=== PATIENT | female | born 1985 | race Caucasian/White ===

== ENCOUNTER → 2019-10-11 | Day surgery (SDC) | payer BC ==
[~2019-10-11] MED LIST: FAMOTIDINE20 MG PO; FENTANYL CITRATE/PF 100MCG/2 ML INJ ONE; FLUOXETINE HCL20 M1 PO; IRON PO; LAMICTAL100 MG PO; MIDAZOLAM HCL 2 MG/2 ML VIAL ONE; PROPOFOL IV EMULSION 10 MG/ML 50 ML VIAL ONE; TRAZODONE HCL50 MG PO; ZONISAMIDE PO
--- OUTSIDE RECORDS SUMMARY | 2019-10-11 11:18 | XMS REPORT ---
Author Author [facility] Address Unknown Phone Unavailable Care Team Providers Care Deputy Sheriff Lieutenant Name Role Phone FEMI GRIMALDO Unavailable Unavailable Ann Langley Unavailable Unavailable JOSE SALCEDO Unavailable Unavailable ROLLY, NICOLE SCHNEIDER Unavailable Unavailable Problems This patient has no known problems. Allergies, Adverse Reactions, Alerts This patient has no known allergies or adverse reactions. Medications This patient has no known medications. Results Test Description Test Time Test Comments Text Results Atomic Results Result Comments TISSUE EXAM 2019-04-21 10:22:00 Surgical Pathology Report Case: [id number] Authorizing Provider: Femi Grimaldo MD Collected: 04/13/2019 1457 Ord ering Location: [facility] PERIOPERATIVE Received: 04/14/2019 0815 SERVICES Pathologist: Emily Beatty MD Specimens: A) - Soft Tissue, Other, left upper ureteral endometriosis B) - Soft Tissue, Other, left upper perirectal space endometriosis C) - Soft Tissue, Other, left pelvic sidewall endometriosis D) - Soft Tissue, Other, left uterine artery endometriosis E) - Soft Tissue, Other, left lower ureteral endometriosis F) - Soft Tissue, Other, posterior cul-de-sac endometriosis G) - Soft Tissue, Other, left lower perirectal space endometriosis H) - Soft Tissue, Other, left uteteral sacral endometriosis I) - Soft Tissue, Other, Recto endometriosis J) - Soft Tissue, Other, left sigmoid endometriosis K) - Soft Tissue, Other, left sigmoid endometriosis #2 L) - Soft Tissue, Other, right sigmoid endometriosis M) - Soft Tissue, Other, right perirectal space endometriosis N) - Soft Tissue, Other, right uterosacral ligament endometriosis O) - Soft Tissue, Other, right pelvic side wall endometriosis P) - Soft Tissue, Other, right uterosacral li gament endometriosis Q) - Soft Tissue, Other, right perirectal space nodule R) - Soft Tissue, Other, bladder endometriosis S) - Uterus w/Cervix & Bilateral Fallopian Tubes A. SOFT TISSUE, LEFT UPPER URETER, EXCISION: - ENDOMETRIOSISB. SOFT TISSUE, LEFT UPPER PERIRECTAL SPACE, EXCISION: - ENDOMETRIOSIS AND ENDOSALPINGIOSISC. SOFT TISSUE, LEFT PELVIC SIDEWALL, EXCISION: - ENDOMETRIOSISD. SOFT TISSUE, LEFT UTERINE ARTERY, EXCISION: - ENDOSALPINGIOSISE. SOFT TISSUE, LEFT LOWER URETER, EXCISION: - ENDOMETRIOSISF. SOFT TISSUE, POSTERIOR CUL-DE-SAC, EXCISION: - ENDOMETRIOSISG. SOFT TISSUE, LEFT LOWER PERIRECTAL SPACE, EXCISION: - ENDOSALPINGIOSISH. SOFT TISSUE, LEFT UTEROSACRAL, EXCISION: - ENDOMETRIOSIS AND ENDOSALPINGIOSISI. SOFT TISSUE, RECTUM, EXCISION: - ENDOMETRIOSIS AND ENDOSALPINGIOSIS J. SOFT TISSUE, LEFT SIGMOID, EXCISION: - ENDOMETRIOSIS AND ENDOSALPINGIOSISK. SOFT TISSUE, LEFT SIGMOID #2, EXCISION: - ENDOMETRIOSIS AND ENDOSALPINGIOSISL. SOFT TISSUE, RIGHT SIGMOID, EXCISION: - ENDOSALPINGIOSISM. SOFT TISSUE, RIGHT PERIRECTAL SPACE, EXCISION: - ENDOSALPINGIOSISN. SOFT TISSUE, RIGHT UTEROSACRAL LIGAMENT, EXCISION: - ENDOMETRIOSIS AND ENDOSALPINGIOSISO. SOFT TISSUE, RIGHT PELVIC SIDEWALL, EXCISION: - ENDOMETRIOSISP. SOFT TISSUE, RIGHT UTEROSACRAL LIGAMENT, EXCISION: - ENDOMETRIOSIS AND ENDOSALPINGIOSISQ. SOFT TISSUE, RIGHT PERIRECTAL SPACE NODULE, EXCISION: - ENDOSALPINGIOSISR. SOFT TISSUE, BLADDER, EXCISION: - ENDOMETRIOSIS AND ENDOSALPINGIOSISS. UTERUS, CERVIX, BILATERAL FALLOPIAN TUBES, HYSTERECTOMY AND BILATERAL SALPINGECTOMY: UTERINE CORPUS: - PROLIFERATIVE ENDOMETRIUM - UNREMARKABLE MYOMETRIAL - SEROSAL ENDOMETRIOSIS CERVIX: - NO PATHOLOGIC CHANGE FALLOPIAN TUBES: - NO PATHOLOGIC CHANGE Signing Pathologist Direct Phone Line: [phone] signed by Emily Beatty MD on 04/21/2019 at 10:22 [id number] of endometriosisA. Left upper ureteral endometriosis. B. Left upper perirectal space endometriosis. C. Left pelvic sidewall endometriosis. D. Left uterine artery endometriosis. E. Left lower ureteral endometriosis. F. Posterior cul-de-sac endometriosis. G. Left lower perirectal space endometriosis. H. Left uterosacral endometriosis. I. Rectal endometriosis. J. Left sigmoid endometriosis. K. Left sigmoid endometriosis #2. L. Right sigmoid endometriosis. M. Right perirectal space endometriosis. N. Right uterosacral ligament endometriosis. O. Right pelvic sidewall endometriosis. P. Right uterosacral ligament endometriosis. Q. Right perirectal space nodule. R. Bladder endometriosis. S. ureter with cervix and bilateral fallopian tubes.The specimen is received in formalin in 19 parts labeled with the patient's name, Katherine Henao, and accession number, [id number], which corresponds to the accompanying requisition form.A. Received labeled "left upper ureteral endometriosis" is a single irregular fragment of gleason-red fibrous tissue measuring 0.8 x 0.6 x 0.4 cm, which is bisected and submitted entirely in A1.B. Received labeled "left upper perirectal space endometriosis" are two irregular fragments of gleason-red fibrous tissue measuring 1.5 x 1.5 x 0.5 cm in aggregate; serially sectioned and submitted entirely in B1.C. Received labeled "left pelvic sidewall endometriosis" is a single irregular fragment of gleason-pink fibrous tissue with a smooth glistening surface, which measures 1.2 x 1.0 x 0.3 cm; submitted entirely in C1.D. Received labeled "left uterine artery endometriosis" is a single irregular fragment of gleason-red fibrous tissue measuring 1.6 x 0.5 x 0.3 cm; submitted entirely in D1.E. Received labeled "left lower ureteral endometriosis" is a single irregular fragment of gleason-red glistening fibromembranous tissue measuring 1.5 x 1.2 x 0.3 cm; submitted entirely in E1.F. Received labeled "posterior cul-de-sac endometriosis" is a single irregular fragment of shaggy gleason tissue measuring 1.0 x 0.6 x 0.5 cm; submitted entirely in F1.G. Received labeled "left lower perirectal space endometriosis" is a single irregular fragment of gleason-pink fibromembranous tissue measuring 1.3 x 0.6 x 0.5 cm; submitted entirely in G1.H. Received labeled "left ureteral sacral endometirosis" is a single irregular fragment of gleason-pink glistening fibromembranous tissue measuring 2.0 x 1.5 x 0.3 cm; submitted entirely in H1.I. Received labeled "rectal endometriosis" is a single irregular portion of gleason-pink soft tissue measuring 2.0 x 1.0 x 0.3 cm, submitted entirely in I1.J. Received labeled "left sigmoid endometriosis" are two irregular fragments of gleason-pink fibromembranous tissue measuring 2.0 x 1.5 x 0.5 cm in aggregate; submitted entirely in J1.K. Received labeled "left sigmoid endometriosis #2" is a single irregular fragment of gleason-white gelatinous tissue measuring 0.6 x 0.3 x 0.1 cm, which is submitted in toto in one cassette.L. Received labeled " right sigmoid endometriosis" are two irregular fragments of gleason-pink fibromembranous tissue measuring 1.0 x 0.5 x 0.2 cm in aggregate. The specimen contains two gleason-red papules measuring 0.1 cm each. The specimen is serially sectioned and submitted entirely in L1.M. Received labeled "right perirectal space endometriosis" are two irregular fragments of gleason-pink glisten ing fibromembranous tissue measuring 2.0 x 1.5 x 0.7 cm in aggregate; submitted entirely in M1.N. Received labeled "right uterosacral ligament endometriosis" are two irregular fragments of gleason-pink fibromembranous tissue measuring 2.3 x 1.5 x 0.5 cm in aggregate. The specimen is serially sectioned and submitted entirely in N1.O. Received labeled "right pelvic side endometriosis" is a single irregular fragment of gleason-red hemorrhagic fibromembranous tissue measuring 2.5 x 1.5 x 0.7 cm; submitted entirely in O1.P. Received labeled "right uterosacral ligament endometriosis" is a single irregular fragment of gleason-red fibromembranous tissue measuring 1.5 x 0.7 x 0.4 cm; submitted entirely in P1.Q. Received labeled "right perirectal space endometriosis" is a single irregular fragment of gleason-pink fibrous tissue measuring 1.0 x 0.4 x 0.3 cm; submitted entirely in Q1.R. Received labeled "bladder endometriosis" are two irregular fragments of gleason-pink hemorrhagic fibromembranous tissue measuring 4.0 x 2.3 x 0.4 cm in aggregate. The specimen is serially sectioned and submitted entirely in R1-R2.S. Received labeled "uterus with cervix and bilateral fallopian tubes" is a 75 gm intact uterus (7.5 x 6.5 x 3.3 cm) with attached cervix (2.3 cm long x 3.5 cm diameter, with 1 cm slit-like os and adjacent granular, edematous, gleason- red mucosa spanning 2.0 x 1.5 cm), and detached unoriented fimbriated fallopian tubes (3 cm long each x 0.5 cm in diameter). The serosal surface is gleason-pink and smooth. The uterus is bivalved to show gleason-pink unreamarkable endocervical mucosa. The endometrial cavity is 3.3 x 2.4 cm. The endometrium is gleason-red and appears thickened, measuring up to 0.5 cm. The myometrium is soft and trabeculated, measuring 1.4 cm in average thickness. The fallopian tubes have pinpoint lumina. No gross lesions are seen. Ink code: Blue - anterior, black - posterior.Table Cut Off Saw Operator sections are submitted as follows. S1-S3, anterior endomyometrium, cervix to fundus, one longitudinal section; S4-S6, posterior endomyometrium, cervix to fundus, one longitudinal section; S7, additional anterior endomyometrium; S8, additional posterior endomyometrium; S9, S10, fallopian tubes. AG/eA-S: Performed. HEMOGLOBIN 2019-03-26 11:09:00 HEMOGLOBIN (BEAKER) (test cqsx=022) 12.9 GM/DL 11.2-15.7 MRI BRAIN [id number] 08:45:20CLINICAL INDICATION: R20.0 Anesthesia of skinMODALITY: Avanto 1.5 Sharri 18 channel MRITECHNIQUE: Multiplanar SE, FSE and inversion recovery pulse sequences of the brain were performed without contrast enhancement. Diffusion weighted imaging is utilized.IMPRESSION:1. There are no intracranial abnormalities. No evidence of intracranial demyelination. 2. There is mild - moderate fluid in mastoid air cells bilaterally, greater in volume on the left.FINDINGS:COMPARISON: noneThere are no significant intracranial white matter lesions. There are no microvascular ischemic changes. There is no evidence of intracranial demyelination.There are no acute infarcts, ischemic changes or hemorrhages. There is no acute restriction on diffusion sequences.There are no intracranial or extra-axial mass es. There is no hydrocephalous.The visualized portions of orbits are normal. Lynette la and parasellar structures are normal. Central skull base is intact. The pine al region is normal.The craniocervical junction is intact. No mass or Chiari mal formation.The brainstem, midbrain and cerebellum are normal. Bilateral internal auditory canals are normal and symmetric.Normal flow voids are seen intracranial ly in carotid and vertebrobasilar arteries. The calvarium is intact. The scalp is intact.There is fluid in mastoid air cells bilaterally, mild on the right, m oderate on the left. The nasopharynx is not completely evaluated on this exam al though no definite obstructing lesions are seen in the visualized portions of th e nasopharynx.CBC (HEMOGRAM ONLY)2018-12-11 04:37:00* Test Item Value Reference Range Comments WHITE BLOOD CELL COUNT (BEAKER) (test eezs=214) 16.5 K/ L 4.0-10.0 RED BLOOD CELL COUNT (BEAKER) (test oncp=749) 2.83 M/ L 4.00-5.00 HEMOGLOBIN (BEAKER) (test agpn=133) 9.2 GM/DL 12.0-15.5 HEMATOCRIT (BEAKER) (test nfyy=063) 27.6 % 36.0-46.0 MEAN CORPUSCULAR VOLUME (BEAKER) (test ebqx=785) 97.5 fL 82.0-99.0 MEAN CORPUSCULAR HEMOGLOBIN (BEAKER) (test sqhx=496) 32.5 pg 27.0-33.0 MEAN CORPUSCULAR HEMOGLOBIN CONC (BEAKER) (test jdgq=647) 33.3 GM/DL 32.0-36.0 RED CELL DISTRIBUTION WIDTH (BEAKER) (test iqdu=219) 13.3 % 12.0-15.0 PLATELET COUNT (BEAKER) (test afis=304) 155 K/CU MM 150-430 MEAN PLATELET VOLUME (BEAKER) (test yozp=610) 10.7 fL 6.0-11.5 NUCLEATED RED BLOOD CELLS (BEAKER) (test tkib=625) 0 /100 WBC 0-0 [id number] 14:37:00* Test Item Value Reference Range Comments RPR SCREEN (BEAKER) (test vouf=299) Nonreactive Nonreactive HIV-1 ANTIGEN WITH HIV-1/2 [id number] 12:07:00* Test Item Value Reference Range Comments HIV-1 ANTIGEN WITH HIV 1\\T\\2 ANTIBODY (2) (BEAKER) (test nreq=6790) Nonreactive Nonreactive HEPATITIS B SURFACE [id number] 12:06:00* Test Item Value Reference Range Comments HEPATITIS B SURFACE ANTIGEN (2) (BEAKER) (test trji=0206) Nonreactive Nonreactive COMPREHENSIVE METABOLIC [id number] 10:29:00* Test Item Value Reference Range Comments TOTAL PROTEIN (BEAKER) (test nqbd=441) 6.2 gm/dL 6.0-8.5 ALBUMIN (BEAKER) (test axif=6558) 3.3 g/dL 3.5-5.0 ALKALINE PHOSPHATASE (BEAKER) (test lqaj=162) 162 U/L 30-115 BILIRUBIN TOTAL (BEAKER) (test cude=434) 0.3 mg/dL 0.1-1.2 SODIUM (BEAKER) (test qutz=312) 135 meq/L 135-148 POTASSIUM (BEAKER) (test nhnt=893) 4.6 meq/L 3.6-5.5 CHLORIDE (BEAKER) (test lzcp=390) 107 meq/L 98-106 CO2 (BEAKER) (test fxdc=891) 23 meq/L 20-29 BLOOD UREA NITROGEN (BEAKER) (test pypb=507) 8 mg/dL 10-26 CREATININE (BEAKER) (test yvxj=138) 0.86 mg/dL 0.50-1.20 GLUCOSE RANDOM (BEAKER) (test fvvl=661) 69 mg/dL 70-110 CALCIUM (BEAKER) (test ixbe=799) 9.2 mg/dL 8.5-10.5 AST (SGOT) (BEAKER) (test ebtg=627) 17 U/L 5-40 ALT (SGPT) (BEAKER) (test pcdo=324) 15 U/L 5-50 EGFR (BEAKER) (test ocfv=3159) 76 mL/min/1.73 sq m ESTIMATED GFR IS NOT ACCURATE CREATININE CLEARANCE IN PREDICTING GLOMERULAR FILTRATION RATE. ESTIMATED GFR IS NOT APPLICABLE FOR DIALYSIS PATIENTS. URIC [id number] 10:29:00* Test Item Value Reference Range Comments URIC ACID (BEAKER) (test acrc=569) 6.8 mg/dL 2.5-8.0 LACTATE DEHYDROGENASE (LDH)2018-12-09 10:25:00* Test Item Value Reference Range Comments LACTATE DEHYDROGENASE (BEAKER) (test plhe=971) 156 U/L 107-206 CBC W/PLT COUNT & AUTO [id number] 10:04:00* Test Item Value Reference Range Comments WHITE BLOOD CELL COUNT (BEAKER) (test xzhg=033) 13.1 K/ L 4.0-10.0 RED BLOOD CELL COUNT (BEAKER) (test zidd=557) 3.53 M/ L 4.00-5.00 HEMOGLOBIN (BEAKER) (test ezwl=027) 11.2 GM/DL 12.0-15.5 HEMATOCRIT (BEAKER) (test fhdp=452) 34.2 % 36.0-46.0 MEAN CORPUSCULAR VOLUME (BEAKER) (test csde=785) 96.9 fL 82.0-99.0 MEAN CORPUSCULAR HEMOGLOBIN (BEAKER) (test oqyv=033) 31.7 pg 27.0-33.0 MEAN CORPUSCULAR HEMOGLOBIN CONC (BEAKER) (test vxsr=311) 32.7 GM/DL 32.0-36.0 RED CELL DISTRIBUTION WIDTH (BEAKER) (test hsfa=850) 13.1 % 12.0-15.0 PLATELET COUNT (BEAKER) (test klah=670) 164 K/CU MM 150-430 MEAN PLATELET VOLUME (BEAKER) (test dcsw=840) 10.5 fL 6.0-11.5 NUCLEATED RED BLOOD CELLS (BEAKER) (test rtph=783) 0 /100 WBC 0-0 NEUTROPHILS RELATIVE PERCENT (BEAKER) (test tpyo=351) 81 % LYMPHOCYTES RELATIVE PERCENT (BEAKER) (test pfpw=593) 13 % MONOCYTES RELATIVE PERCENT (BEAKER) (test cemj=806) 4 % EOSINOPHILS RELATIVE PERCENT (BEAKER) (test gwyp=616) 1 % BASOPHILS RELATIVE PERCENT (BEAKER) (test wnaq=649) 0 % NEUTROPHILS ABSOLUTE COUNT (BEAKER) (test rjjj=390) 10.60 K/ L 1.80-8.00 LYMPHOCYTES ABSOLUTE COUNT (BEAKER) (test aejo=755) 1.68 K/ L 1.48-4.50 MONOCYTES ABSOLUTE COUNT (BEAKER) (test pviw=226) 0.56 K/ L 0.00-1.30 EOSINOPHILS ABSOLUTE COUNT (BEAKER) (test rlle=517) 0.14 K/ L 0.00-0.50 BASOPHILS ABSOLUTE COUNT (BEAKER) (test ebsc=441) 0.04 K/ L 0.00-0.20 IMMATURE GRANULOCYTES-RELATIVE PERCENT (BEAKER) (test dizv=6552) 1 % 0-0 URINALYSIS W/ [id number] 13:19:00* Test Item Value Reference Range Comments COLOR (BEAKER) (test peoc=074) Yellow CLARITY (BEAKER) (test unrh=425) Clear SPECIFIC GRAVITY UA (BEAKER) (test hluz=137) <= 1.001-1.035 PH UA (BEAKER) (test mory=161) 7.0 5.0-8.0 PROTEIN UA (BEAKER) (test olzu=646) Negative Negative GLUCOSE UA (BEAKER) (test xxcn=016) Negative Negative KETONES UA (BEAKER) (test tmpu=686) Negative Negative BILIRUBIN UA (BEAKER) (test zfja=688) Negative Negative BLOOD UA (BEAKER) (test xsep=295) Moderate Negative NITRITE UA (BEAKER) (test fqyi=188) Negative Negative LEUKOCYTE ESTERASE UA (BEAKER) (test vbhr=692) Negative Negative UROBILINOGEN UA (BEAKER) (test ztxb=927) 0.2 mg/dL 0.2-1.0 BACTERIA (BEAKER) (test twwq=228) Rare RBC UA-MANUAL (BEAKER) (test rkbz=7990) 10-20 /HPF WBC UA-MANUAL (BEAKER) (test xxjr=7396) <5 /HPF SQUAMOUS EPITHELIAL MANUAL (BEAKER) (test tamu=5997) 5-10 /HPF SOURCE(BEAKER) (test ovwl=1692) CBC W/PLT COUNT & AUTO [id number] 11:59:00* Test Item Value Reference Range Comments WHITE BLOOD CELL COUNT (BEAKER) (test fdfr=029) 17.8 10e3/i? L 4.0-10.0 RED BLOOD CELL COUNT (BEAKER) (test fldf=358) 4.56 10e6/i? L 4.00-5.00 HEMOGLOBIN (BEAKER) (test jvbt=037) 14.1 g/dL 12.0-15.0 HEMATOCRIT (BEAKER) (test xzax=155) 43.1 % 36.0-45.0 MEAN CORPUSCULAR VOLUME (BEAKER) (test vllk=552) 94.5 fL 82.0-99.0 MEAN CORPUSCULAR HEMOGLOBIN (BEAKER) (test lhxt=129) 30.9 pg 27.0-33.0 MEAN CORPUSCULAR HEMOGLOBIN CONC (BEAKER) (test keoo=113) 32.7 g/dL 32.0-36.0 RED CELL DISTRIBUTION WIDTH (BEAKER) (test hovo=213) 10.6 % 10.3-14.2 PLATELET COUNT (BEAKER) (test akpn=033) 138 10e3/i? L 150-430 MEAN PLATELET VOLUME (BEAKER) (test ducc=883) 8.2 fL 6.5-10.5 NEUTROPHILS RELATIVE PERCENT (BEAKER) (test kujb=779) 92 % LYMPHOCYTES RELATIVE PERCENT (BEAKER) (test fxpk=211) 3 % MONOCYTES RELATIVE PERCENT (BEAKER) (test yjiv=265) 4 % EOSINOPHILS RELATIVE PERCENT (BEAKER) (test maum=661) 1 % BASOPHILS RELATIVE PERCENT (BEAKER) (test iakp=995) 1 % NEUTROPHILS ABSOLUTE COUNT (BEAKER) (test wrmy=959) 16.31 10e3/i? L 1.80-8.00 LYMPHOCYTES ABSOLUTE COUNT (BEAKER) (test bsei=922) 0.48 10e3/i? L 1.48-4.50 MONOCYTES ABSOLUTE COUNT (BEAKER) (test sqxm=779) 0.64 10e3/i? L 0.00-1.30 EOSINOPHILS ABSOLUTE COUNT (BEAKER) (test ikzj=629) 0.20 10e3/i? L 0.00-0.50 BASOPHILS ABSOLUTE COUNT (BEAKER) (test hnjt=733) 0.12 10e3/i? L 0.00-0.20 COMPREHENSIVE METABOLIC [id number] 11:49:00* Test Item Value Reference Range Comments TOTAL PROTEIN (BEAKER) (test afgq=130) 8.6 gm/dL 6.0-8.5 ALBUMIN (BEAKER) (test bemd=1686) 5.2 g/dL 3.5-5.0 ALKALINE PHOSPHATASE (BEAKER) (test akpp=467) 74 U/L 30-115 BILIRUBIN TOTAL (BEAKER) (test igas=224) 1.0 mg/dL 0.1-1.2 SODIUM (BEAKER) (test ugoy=219) 143 meq/L 135-148 POTASSIUM (BEAKER) (test yggv=540) 4.9 meq/L 3.6-5.5 CHLORIDE (BEAKER) (test gvzh=346) 112 meq/L 98-106 CO2 (BEAKER) (test fqwl=713) 18 meq/L 24-32 BLOOD UREA NITROGEN (BEAKER) (test mcai=537) 13 mg/dL 10-26 CREATININE (BEAKER) (test unde=577) 0.94 mg/dL 0.50-1.20 GLUCOSE RANDOM (BEAKER) (test zjdl=159) 148 mg/dL 70-110 CALCIUM (BEAKER) (test avuw=832) 10.1 mg/dL 8.5-10.5 AST (SGOT) (BEAKER) (test tgzv=634) 34 U/L 5-40 ALT (SGPT) (BEAKER) (test jlcc=116) 23 U/L 5-50 EGFR (BEAKER) (test wbmi=8196) 69 mL/min/1.73 sq m ESTIMATED GFR IS NOT ACCURATE CREATININE CLEARANCE IN PREDICTING GLOMERULAR FILTRATION RATE. ESTIMATED GFR IS NOT APPLICABLE FOR DIALYSIS PATIENTS. [id number] 11:45:00* Test Item Value Reference Range Comments LIPASE (BEAKER) (test hsic=955) 113 U/L 40-240 URINALYSIS W/ REFLEX URINE [id number] 11:41:00* Test Item Value Reference Range Comments COLOR (BEAKER) (test lxjf=281) Yellow CLARITY (BEAKER) (test vcut=989) Clear SPECIFIC GRAVITY UA (BEAKER) (test fcuz=204) 1.025 1.001-1.035 PH UA (BEAKER) (test wwgn=559) 5.0 5.0-8.0 PROTEIN UA (BEAKER) (test gxgy=421) 30 mg/dL Negative GLUCOSE UA (BEAKER) (test tbyd=198) Negative Negative KETONES UA (BEAKER) (test tzlj=646) Negative Negative BILIRUBIN UA (BEAKER) (test hnot=559) Negative Negative BLOOD UA (BEAKER) (test ygux=711) Negative Negative NITRITE UA (BEAKER) (test fgfa=875) Negative Negative LEUKOCYTE ESTERASE UA (BEAKER) (test sttr=153) Negative Negative UROBILINOGEN UA (BEAKER) (test exht=231) 0.2 mg/dL 0.2-1.0 BACTERIA (BEAKER) (test nqew=211) Few MUCUS (BEAKER) (test dgnk=4423) Moderate RBC UA-MANUAL (BEAKER) (test uyzc=2151) None Seen /HPF WBC UA-MANUAL (BEAKER) (test wdkp=6218) <5 /HPF SQUAMOUS EPITHELIAL MANUAL (BEAKER) (test jmrs=3436) <5 /HPF SOURCE(BEAKER) (test tsyt=0392) SCREEN, [id number] 11:37:00* Test Item Value Reference Range Comments TEST URINE (BEAKER) (test zggx=668) Negative CBC (HEMOGRAM ONLY)2017-07-03 06:07:00* Test Item Value Reference Range Comments WHITE BLOOD CELL COUNT (BEAKER) (test wgxt=927) 15.5 K/ L 4.0-10.0 RED BLOOD CELL COUNT (BEAKER) (test lwxw=204) 3.52 M/ L 4.00-5.00 HEMOGLOBIN (BEAKER) (test ylgr=870) 11.2 GM/DL 12.0-15.0 HEMATOCRIT (BEAKER) (test zhdj=245) 33.9 % 36.0-45.0 MEAN CORPUSCULAR VOLUME (BEAKER) (test eiqv=729) 96.3 fL 82.0-99.0 MEAN CORPUSCULAR HEMOGLOBIN (BEAKER) (test eobu=276) 31.9 pg 27.0-33.0 MEAN CORPUSCULAR HEMOGLOBIN CONC (BEAKER) (test fuzj=028) 33.1 GM/DL 32.0-36.0 RED CELL DISTRIBUTION WIDTH (BEAKER) (test sdgv=617) 12.7 % 10.3-14.2 PLATELET COUNT (BEAKER) (test pqqc=338) 132 K/CU MM 150-430 MEAN PLATELET VOLUME (BEAKER) (test wxli=795) 8.5 fL 6.5-10.5 NUCLEATED RED BLOOD CELLS (BEAKER) (test eqjz=917) 0 /100 WBC 0-0 CBC W/PLT COUNT & AUTO [id number] 20:32:00* Test Item Value Reference Range Comments WHITE BLOOD CELL COUNT (BEAKER) (test ypfg=224) 11.2 K/ L 4.0-10.0 RED BLOOD CELL COUNT (BEAKER) (test wyju=301) 3.46 M/ L 4.00-5.00 HEMOGLOBIN (BEAKER) (test mtyw=253) 11.0 GM/DL 12.0-15.0 HEMATOCRIT (BEAKER) (test jtpa=113) 32.9 % 36.0-45.0 MEAN CORPUSCULAR VOLUME (BEAKER) (test exrs=133) 95.3 fL 82.0-99.0 MEAN CORPUSCULAR HEMOGLOBIN (BEAKER) (test nuya=588) 31.9 pg 27.0-33.0 MEAN CORPUSCULAR HEMOGLOBIN CONC (BEAKER) (test ymuh=616) 33.5 GM/DL 32.0-36.0 RED CELL DISTRIBUTION WIDTH (BEAKER) (test ikkn=148) 12.8 % 10.3-14.2 PLATELET COUNT (BEAKER) (test guzw=131) 159 K/CU MM 150-430 MEAN PLATELET VOLUME (BEAKER) (test hnip=150) 8.8 fL 6.5-10.5 NUCLEATED RED BLOOD CELLS (BEAKER) (test ezdi=051) 0 /100 WBC 0-0 NEUTROPHILS RELATIVE PERCENT (BEAKER) (test lroc=146) 74 % LYMPHOCYTES RELATIVE PERCENT (BEAKER) (test krib=796) 21 % MONOCYTES RELATIVE PERCENT (BEAKER) (test wroy=940) 5 % EOSINOPHILS RELATIVE PERCENT (BEAKER) (test qhat=229) 0 % BASOPHILS RELATIVE PERCENT (BEAKER) (test qtim=097) 0 % NEUTROPHILS ABSOLUTE COUNT (BEAKER) (test oxjr=047) 8.20 K/ L 1.80-8.00 LYMPHOCYTES ABSOLUTE COUNT (BEAKER) (test awrj=018) 2.30 K/ L 1.48-4.50 MONOCYTES ABSOLUTE COUNT (BEAKER) (test slmg=775) 0.60 K/ L 0.00-1.30 EOSINOPHILS ABSOLUTE COUNT (BEAKER) (test ssfe=279) 0.00 K/ L 0.00-0.50 BASOPHILS ABSOLUTE COUNT (BEAKER) (test orpw=128) 0.00 K/ L 0.00-0.20 MRI THORACIC WOCLINICAL INDICATION: M54.6 Pain in thoracic spineMODALITY: [employer] 1.5 Sharri 18 channel MRITECHNIQUE: Multiplanar SE and FSE evaluation of the thoracic region was performed without contrast enhancement.IMPRESSION:1. Normal thoracic spinal cord.2. The vertebral heights are preserved with no evidence of fracture or marrow infiltration.3. There is a tiny 3 mm left paracentral disc osteophyte complex at T7-T8 level without significant spinal canal nor neural foraminal stenosis. There is no other significant focal disc herniation, canal stenosis or foraminal stenosis.FINDINGS:COMPARISON: noneThere is normal thoracic kyphosis and alignment.There is uniform preservation of vertebral body height. Mild disc dessication is seen in the thoracic spine. There is a 3 mm left paracentral disc osteophyte complex at T7-T8 level without significant spinal canal or neural foraminal stenosis. There are no other significant focal disc herniations. No evidence of central canal or foraminal stenosis. Posterior elements are intact. No significant facet arthrosis.There are no fractures or destructive osseous lesions. There is no pathologic bone marrow signal intensity. There are no paraspinous or prevertebral soft tissue masses. There are no pleural effusions.The thoracic spinal cord is normal without intramedullary, intradural or extradural lesion. There is no pathologic signal intensity in the thoracic spinal cord. Conus medullaris and cauda equina are normal. Conus terminates at L1-L2.MRI CERVICAL WOCLINICAL INDICATION: G43.711 Chronic migraine w/o aura, intractable, w status migrainosus headaches and neck pain radiating to right armMODALITY: [employer] 1.5 [employer] 18 channel MRITECHNIQUE: Multiplanar SE and FSE evaluation of the cervical region was performed without contrast enhancement.IMPRESSION:1. Mild disc desiccation early degeneration C4-5 through C6-7 levels with straightening of cervical lordosis.2. No focal disc herniation central canal or foraminal stenosis noted at any level of the cervical spine.FINDINGS:COMPARISON: noneNo tonsillar ectopia or foramen magnum mass and cervical cord is unremarkable without intradural extramedullary abnormality.Mild disc dessication and early degeneration with minimal spondylosis C4-5, C5-6 and C6-7 levels.Straightening of cervical lordosi s. No vertebral body compression.No marrow infiltrative process.No paraspinal so ft tissue mass.Atlanto-axial articulation unremarkable.FINDINGS AT SPECIFIC LEVE LS:C2-C3: UnremarkableC3-C4: UnremarkableC4-C5: UnremarkableC5-C6: UnremarkableC 6-C7: UnremarkableC7-T1: Unremarkable
[2019-10-11 14:05] VITALS: BP 120/71
== END | disposition home or self-care (01) ==
LOC: OR 11:16
PROVIDERS: ATTEND Internal Medicine Gastroenterology
DX: Z12.11 Encounter for screening for malignant neoplasm of colon (principal); K29.70 Gastritis, unspecified, without bleeding; K44.9 Diaphragmatic hernia without obstruction or gangrene; K31.819 Angiodysplasia of stomach and duodenum without bleeding; K21.9 Gastro-esophageal reflux disease without esophagitis; K59.09 Other constipation; K64.8 Other hemorrhoids; Z98.84 Bariatric surgery status; D64.9 Anemia, unspecified; R63.4 Abnormal weight loss; N83.202 Unspecified ovarian cyst, left side; N83.201 Unspecified ovarian cyst, right side; F31.9 Bipolar disorder, unspecified; F41.9 Anxiety disorder, unspecified; Z80.0 Family history of malignant neoplasm of digestive organs
CPT/HCPCS: 43239; 45378; J2250; J2704; J3010; 43255

== ENCOUNTER → 2019-11-09 | Day surgery (SDC) | payer BC ==
[~2019-11-09] MED LIST changes: -FENTANYL CITRATE/PF 100MCG/2 ML INJ ONE; +LIDOCAINE HCL 2% LOCAL INJ 5 ML SDV VIAL INJ ONE; +PROPOFOL IV EMULSION 10 MG/ML 20 ML VIAL ONE; -PROPOFOL IV EMULSION 10 MG/ML 50 ML VIAL ONE; +PROZAC20 MG PO; +VITAMIN D350000 UNIT PO; +ZONEGRAN100 MG PEG
[2019-11-09 13:20] VITALS: BP 104/65
== END | disposition home or self-care (01) ==
LOC: OR 12:02
PROVIDERS: ATTEND Internal Medicine Gastroenterology
DX: K31.819 Angiodysplasia of stomach and duodenum without bleeding (principal); K29.60 Other gastritis without bleeding; Z98.84 Bariatric surgery status; K44.9 Diaphragmatic hernia without obstruction or gangrene; K59.09 Other constipation; R63.4 Abnormal weight loss; D64.9 Anemia, unspecified; N83.202 Unspecified ovarian cyst, left side; N83.201 Unspecified ovarian cyst, right side; F31.9 Bipolar disorder, unspecified; Z80.0 Family history of malignant neoplasm of digestive organs
CPT/HCPCS: 43239; J2001; J2250; J2704